=== PATIENT | male | born 1970 | race Caucasian/White ===

== ENCOUNTER 2022-02-05 12:12 | Emergency (ER) | payer OTHER ==
[~2022-02-05] VITALS: Ht 182.9 cm; Wt 104.5 kg
[2022-02-05 12:28] VITALS: BP 148/92
--- NOTE | 2022-02-05 12:49 | PHYS DOC ---
Past History Past Surgical History: No Surgical History (LUIS WITT APRN) Alcohol Use: Occasionally (LUIS WITT APRN) General Adult EDM: Chief Complaint: UPPER EXTREMITY PAIN HPI: HPI: Patient is a 51-year-old male who presents to the emergency department for left elbow redness, swelling, pain. Patient reports that a couple of days ago he woke up with the symptoms. He was seen at [facility] yesterday and was given a dose of IV Rocephin and was sent in a prescription for doxycycline. Reports that he has been unable to fill the doxycycline prescription as his pharmacy was closed. He followed up at [facility] today and they gave him a shot of Toradol and advised him to go to the emergency department. Patient is reporting a fever. He reports taking Tylenol and Motrin combination tablet at 630 this morning. Patient is currently febrile. (LUIS WITT APRN) Review of Systems: Review of Systems: Constitutional: See HPI Musculoskeletal: See HPI Integument: See HPI Neurologic: Denies sensory changes (LUIS WITT APRN) Allergies: Allergies: Allergies Coded Allergies Type Severity Reaction Last Updated Verified No Known Drug Allergies 02/05/22 No (LUIS WITT APRN) Physical Exam: PE: Constitutional: Well developed, well nourished, no acute distress, non-toxic appearance. [] HENT: Normocephalic, atraumatic, bilateral external ears normal, oropharynx moist, no oral exudates, nose normal. [] Eyes: PERRL, EOMI, conjunctiva normal, no discharge. [] Neck: Normal range of motion, no stridor Cardiovascular:Heart rate regular rhythm, no murmur [] Lungs & Thorax: Bilateral breath sounds clear to auscultation [] Abdomen: Soft and flat Skin: Warm, dry, no erythema, no rash. [] Back: No tenderness, normal range of motion Extremities: No tenderness, no cyanosis, no clubbing, ROM intact, no edema. [] Left elbow: Redness, warmth, swelling and tenderness noted to left elbow extending to forearm and upper arm, range of motion intact, neuro intact, no wounds visible Neurologic: Alert and oriented X 3, normal motor function, normal sensory function, no focal deficits noted. [] Psychologic: Affect normal, judgement normal, mood normal. [] (LUIS WITT APRN) Current Patient Data: Vital Signs: Vital Signs Date Time Temp Pulse Resp B/P (MAP) Pulse Ox O2 Delivery O2 Flow Rate FiO2 02/05/22 12:28 101.3 114 16 148/92 (110) 97 Room Air (LUIS WITT APRN) EKG: EKG: [] (LUIS WITT APRN) Radiology/Procedures: Radiology/Procedures: [] (LUIS WITT APRN) Heart Score: C/O Chest Pain: N/A Risk Factors: Risk Factors: DM, Current or recent (<one month) smoker, HTN, HLP, family history of CAD, obesity. Risk Scores: Score 0 - 3: 2.5% MACE over next 6 weeks - Discharge Home Score 4 - 6: 20.3% MACE over next 6 weeks - Admit for Clinical Observation Score 7 - 10: 72.7% MACE over next 6 weeks - Early Invasive Strategies (LUIS WITT APRN) Course & Med Decision Making: Course & Med Decision Making Pertinent Labs and Imaging studies reviewed. (See chart for details) [] Patient presents to the emergency department for left elbow pain with redness, warmth, swelling. Patient reports that his primary care provider sent him into the emergency department so that an orthopedic doctor can see him as he believes he has a septic joint. Patient has no signs of wounds. He is febrile in the ER. Concern for septic joint. I discussed blood work and joint aspiration with patient. I informed patient that if he indeed has a joint we will need to transfer him to [facility] with orthopedic doctor can see him and start him on IV antibiotics. Patient reports that he would like to [facility] on [facility] where he was seen yesterday. Patient chose to leave the emergency department prior to ER work-up. Patient is alert and capable of making his own medical decisions. Patient's at bedside. (LUIS WITT APRN) Dragon Disclaimer: Dragon Disclaimer: This electronic medical record was generated, in whole or in part, using a voice recognition dictation system. (LUIS WITT APRN) Attending Co-Sign The patient was seen and interviewed as well as examined at the bedside. The chart was reviewed. The case was discussed. Agree with the plan of care. (ALLAN EDEN DO) Departure Departure: Impression: Primary Impression: Elbow pain Qualified Codes: M25.522 - Pain in left elbow Disposition: 07 LEFT AWOL/ELOPED Condition: STABLE Referrals: YOUSIF GANN DO (PCP) LUIS WITT APRN Feb 05, 2022 12:49 ALLAN EDEN DO Feb 06, 2022 07:56
== END 2022-02-05 12:44 | disposition left against medical advice (07) ==
LOC: ER 12:12
DX: M25.522 Pain in left elbow (principal); R22.32 Localized swelling, mass and lump, left upper limb; R50.9 Fever, unspecified
CPT/HCPCS: 99281